=== PATIENT | female | born 1935 | race African-American/Black ===

== ENCOUNTER 2017-07-06 15:51 | Observation (INO) | payer OTHER ==
[~2017-07-06] VITALS: Ht 172.7 cm; Wt 80.7 kg
[2017-07-06 16:46] LABS: Basophils # (auto) 0 uL; Basophils % (auto) 0.1 % (0.0-2.0); CONDITION Y; DEFINITIVE SEE PRINTOUT; Eosinophils # (auto) 0 uL; Eosinophils % (auto) 0.1 % (0.0-7.0); Hematocrit 46.7 % (36.0-46.0); Hemoglobin 15.1 g/dL (12.2-16.2); Lymphocytes # (auto) 0.7 uL; Lymphocytes % (auto) 6.1 % (10.0-50.0); Mean Corpuscular Hemoglobin 26.3 pg (28.0-32.0); Mean Corpuscular Hgb Conc. 32.3 g/dL (32.0-36.0); Mean Corpuscular Volume 81.5 fL (80.0-100.0); Mean Platelet Volume 9.5 fL (7.4-10.4); Monocytes # (auto) 0.4 uL; Monocytes % (auto) 3.5 % (0.0-12.0); Neutrophils # (auto) 9.8 uL; Neutrophils % (auto) 90.2 % (37.0-80.0); Platelet Count (auto) 398 10^3/uL (140-450); Red Cell Distribution Width 17.8 % (11.6-16.0); SUSPECT SEE PRINTOUT; White Blood Cell 10.9 10^3/uL (4.4-10.8)
[2017-07-06 17:06] LABS: Albumin 3.2 g/dL (3.4-5.0); BUN/Creatinine Ratio 15.3; Calcium 9.5 mg/dL (8.5-10.1); Potassium 3.1 mmol/L (3.5-5.1)
[2017-07-06 17:09] LABS: Lactic Acid w/Reflex 3.4 mmol/L (0.4-2.0)
[2017-07-06 17:11] LABS: Bilirubin, Total 0.8 mg/dL (0.2-1.0); Total Protein 7.7 g/dL (6.4-8.2)
[2017-07-06 17:17] LABS: REFLEX LACTIC ACID YES OR NO YES
[2017-07-06 17:39] LABS: INR 1.1 (0.9-1.15); Partial Thromboplastin Time 25.2 sec (22.64-33.71)
[2017-07-06] MEDS ORDERED: cefTRIAXone 1GM/50ML D5W 50 ML IV ONE (19:15)
[2017-07-06] MEDS ORDERED: POTASSIUM CHL 20 Meq TABLET PO ONE (19:15)
[2017-07-06] MEDS ORDERED: SODIUM CHLORIDE 0.9% 1,000 ML IV ONE ×2 (19:30)
[2017-07-06] MEDS ORDERED: POTASSIUM CHL 10% (20 MEQ/15ML) 15ml ORAL SOLN GT ONE (19:45)
[2017-07-06 22:35] VITALS: BP 167/71
[2017-07-06 22:38] LABS: Urine Bilirubin Negative (Negative); Urine Blood 1+ /uL (Negative); Urine Color Yellow (Yellow); Urine Glucose Normal (Normal); Urine Hyaline Cast FEW /lpf (0 - 2); Urine Ketone Negative (Negative); Urine Mucus FEW (None Seen); Urine Nitrite Negative (Negative); Urine RBC 7 /hpf (0 - 4); Urine Squamous Epithelial Cell MOD /hpf (<5); Urine pH 6.5 (5.0-8.0)
== END 2017-07-06 23:34 | disposition short-term general hospital (02) | DRG 71 ==
LOC: ER 15:54 → OVERFLOW 17:10 → ER 23:34
PROVIDERS: ADMIT Family Medicine; ATTEND Family Medicine
DX: G93.41 Metabolic encephalopathy (principal); N30.00 Acute cystitis without hematuria; E87.0 Hyperosmolality and hypernatremia; E87.6 Hypokalemia; Z87.891 Personal history of nicotine dependence; R74.8 Abnormal levels of other serum enzymes; Z74.01 Bed confinement status; Z86.73 Personal history of transient ischemic attack (TIA), and cerebral infarction without residual deficits; I10 Essential (primary) hypertension; Z82.49 Family history of ischemic heart disease and other diseases of the circulatory system
CPT/HCPCS: 36415; 70450; 71010; 80053; 81001; 82962; 83605; 83735; 84484; 85025; 85610; 85730; 87040; 93005; 96365; 99291; G0378; J0696; J7030

== ENCOUNTER 2017-12-06 16:48 | Inpatient (IN) | payer OTHER, MEDICAID ==
[~2017-12-06] VITALS: Ht 154.9 cm; Wt 72.6 kg
[2017-12-06 17:42] LABS: Mean Corpuscular Hemoglobin 28.6 pg (28.0-32.0); White Blood Cell 19.3 10^3/uL (4.4-10.8)
[2017-12-06 17:44] LABS: Hematocrit 25.8 % (36.0-46.0); Mean Corpuscular Volume 92.4 fL (80.0-100.0); Platelet Count (auto) 370 10^3/uL (140-450)
[2017-12-06 17:48] LABS: Red Cell Distribution Width 22.2 % (11.8-14.3)
[2017-12-06 17:50] LABS: Basophils % (manual) 0 (0.0-2.0); Blast Cells 0; Eosinophils % (manual) 0 (0-7); Metamyelocytes % 0; Myelocytes % 0; Promyelocytes % 0; Reactive Lymphocytes 0
[2017-12-06 17:58] LABS: Albumin 1.5 g/dL (3.4-5.0); BUN/Creatinine Ratio 39.2; Calcium 8.8 mg/dL (8.5-10.1); Potassium 3.7 mmol/L (3.5-5.1)
[2017-12-06 17:59] LABS: INR 0.97 (0.9-1.15); Partial Thromboplastin Time 26.2 sec (22.64-33.71); Prothrombin Time 10.6 sec (9.37-12.3)
[2017-12-06 18:03] LABS: Bilirubin, Total 0.4 mg/dL (0.2-1.0); Total Protein 7.1 g/dL (6.4-8.2)
[2017-12-06 18:24] LABS: Band Neutrophils % (manual) 3; Lymphocytes % (manual) 3 (10.0-50.0); Monocytes % (manual) 3 (0-12)
[2017-12-06 19:12] LABS: Urine Bacteria FEW /hpf (None Seen); Urine Blood 1+ /uL (Negative); Urine Hyaline Cast FEW /lpf (0 - 2); Urine Specific Gravity 1.011 (1.001-1.035); Urine WBC 673 /hpf (0 - 5); Urine WBC Clumps PRESENT /hpf (None Seen)
[2017-12-06] MEDS ORDERED: cefTRIAXone 1GM/10ml IVPUSH 10 ML IV ONE (19:15)
[2017-12-06] MEDS ORDERED: ASPirin 81 mg TAB PO ONE (19:15)
[2017-12-06] MEDS ORDERED: LEVOFLOXACIN 500MG 0 ML IV ONE (19:50)
[2017-12-06 20:02] LABS: Alcohol, Urine < 3.0 mg/dL (0-5); Amphetamine Screen, Urine NEGATIVE (NEGATIVE); Barbiturate Scree,Urine NEGATIVE (NEGATIVE); Benzodiazephine Screen, Urine NEGATIVE (NEGATIVE); Cannabinoid Screen, Urine NEGATIVE (NEGATIVE); Cocaine Screen, Urine NEGATIVE (NEGATIVE); Opiate Scree,Urine NEGATIVE (NEGATIVE); Phencyclidine Screen, Urine NEGATIVE (NEGATIVE)
[2017-12-06] MEDS ORDERED: VANCOMYCIN PER PHARMACY 0 MG IV SCH ×2 (20:45→23:30)
[2017-12-06] MEDS ORDERED: PIPERACILLIN-TAZOB 3.375GM 50 ML IV ONE (20:45)
[2017-12-06] MEDS ORDERED: IOHEXOL 300 MG/ML 100ML BOTTLE IJ ONE (20:46)
[2017-12-06] MEDS ORDERED: VANCOMYCIN 1GM/250ML 250 ML IV ONE (21:30)
[2017-12-06] MEDS ORDERED: ONDANSETRON HCL 4 MG/2 ML VIAL IV PRN (23:30)
[2017-12-06] MEDS ORDERED: MORPHINE SULFATE 4 MG/ML SYR/VIAL IV PRN (23:30)
[2017-12-06] MEDS: SOD CHL 0.45% 1,000 ML IV SCH (23:30)
[2017-12-06] MEDS ORDERED: ACETAMINOPHEN 325 MG TAB PO PRN (23:30)
[2017-12-06] MEDS ORDERED: HYDROcodone-ACET 5/325MG TAB PO PRN (23:30)
[2017-12-06] MEDS ORDERED: NITROGLYCERIN 0.4 MG SL TAB SL PRN (23:30)
[2017-12-06] MEDS ORDERED: PANTOPRAZOLE 40 MG/10 ML VIAL IV ONE (23:30)
[2017-12-07] MEDS ORDERED: VANCOMYCIN 1GM/250ML 250 ML IV ONE (01:00)
[2017-12-07 06:03] LABS: Basophils # (auto) 0 uL; Basophils % (auto) 0.1 % (0.0-2.0); Eosinophils # (auto) 0 uL; Eosinophils % (auto) 0.1 % (0.0-7.0); Hemoglobin 7.4 g/dL (12.2-16.2); Lymphocytes # (auto) 1.4 uL; Lymphocytes % (auto) 7.2 % (10.0-50.0); Mean Corpuscular Hemoglobin 29.2 pg (28.0-32.0); Mean Corpuscular Hgb Conc. 32.2 g/dL (32.0-36.0); Mean Corpuscular Volume 90.8 fL (80.0-100.0); Monocytes # (auto) 0.5 uL; Monocytes % (auto) 2.8 % (0.0-12.0); Neutrophils % (auto) 89.8 % (37.0-80.0); Nucleated Red Blood Cells % 0.2 %; Platelet Count (auto) 293 10^3/uL (140-450); Red Blood Cells 2.54 10^6/uL (4.0-5.20); White Blood Cell 18.9 10^3/uL (4.4-10.8)
[2017-12-07 06:07] LABS: Potassium 3.9 mmol/L (3.5-5.1)
[2017-12-07 06:08] LABS: Albumin 1.4 g/dL (3.4-5.0); BUN/Creatinine Ratio 41.3; Calcium 8.7 mg/dL (8.5-10.1); Red Cell Distribution Width 21.5 % (11.8-14.3)
[2017-12-07 06:38] LABS: Bilirubin, Total 0.4 mg/dL (0.2-1.0); Total Protein 6.3 g/dL (6.4-8.2)
[2017-12-07 09:00] VITALS: BP 135/62
[2017-12-07] MEDS: ASPirin 81 mg TAB PO SCH (09:57)
[2017-12-07] MEDS ORDERED: PANT40TA2 PO (09:57)
[2017-12-07] MEDS ORDERED: LISI10TA6 PO (09:57)
[2017-12-07] MEDS: ENOXAPARIN SOD 40 MG/0.4 ML SYRINGE SC SCH (10:12)
[2017-12-07] MEDS: PANTOPRAZOLE 40 MG/10 ML VIAL IV SCH (10:12)
[2017-12-07 13:00] VITALS: BP 128/76
[2017-12-07 17:00] VITALS: BP 79/38
[2017-12-07] MEDS: SOD CHL 0.45% 1,000 ML IV SCH (21:04)
[2017-12-07] MEDS: cefTRIAXone 1GM/10ml IVPUSH 10 ML IV SCH (21:28)
[2017-12-07 21:58] VITALS: BP 102/58
[2017-12-08] MEDS: VANCOMYCIN 1GM/250ML 250 ML IV SCH (01:15)
[2017-12-08 04:59] VITALS: BP 101/49
[2017-12-08 09:00] VITALS: BP 147/87
[2017-12-08] MEDS: ASPirin 81 mg TAB PO SCH (10:00)
[2017-12-08] MEDS: PANTOPRAZOLE 40 MG/10 ML VIAL IV SCH (10:06)
[2017-12-08] MEDS: ENOXAPARIN SOD 40 MG/0.4 ML SYRINGE SC SCH (10:06)
[2017-12-08 12:08] LABS: Basophils # (auto) 0 uL; Eosinophils % (auto) 0.3 % (0.0-7.0); Mean Corpuscular Hemoglobin 29.9 pg (28.0-32.0); Monocytes # (auto) 0.3 uL; Nucleated Red Blood Cells % 0.1 %; White Blood Cell 15.6 10^3/uL (4.4-10.8)
[2017-12-08 12:10] LABS: Basophils % (auto) 0.2 % (0.0-2.0); Eosinophils # (auto) 0 uL; Hematocrit 20.6 % (36.0-46.0); Lymphocytes % (auto) 6.7 % (10.0-50.0); Mean Corpuscular Hgb Conc. 32.9 g/dL (32.0-36.0); Monocytes % (auto) 2.2 % (0.0-12.0); Neutrophils # (auto) 14.1 uL; Neutrophils % (auto) 90.6 % (37.0-80.0); Platelet Count (auto) 321 10^3/uL (140-450); Red Blood Cells 2.27 10^6/uL (4.0-5.20)
[2017-12-08 12:36] LABS: Hemoglobin 6.8 g/dL (12.2-16.2)
[2017-12-08 12:40] LABS: BUN/Creatinine Ratio 36.9; Calcium 8.4 mg/dL (8.5-10.1); Potassium 3.4 mmol/L (3.5-5.1)
[2017-12-08 13:00] VITALS: BP 159/87
[2017-12-08] MEDS: SOD CHL 0.45% 1,000 ML IV SCH (15:51)
[2017-12-08 16:45] VITALS: BP 156/79
[2017-12-08 22:00] VITALS: BP 134/67
[2017-12-08] MEDS: cefTRIAXone 1GM/10ml IVPUSH 10 ML IV SCH (22:00)
[2017-12-09] MEDS: VANCOMYCIN 1GM/250ML 250 ML IV SCH (01:24)
[2017-12-09 05:27] VITALS: BP 114/52
[2017-12-09] MEDS ORDERED: ceFAZolin 1GM/50ML 50 ML IV ONE (06:35)
[2017-12-09 06:46] LABS: Basophils # (auto) 0 uL; Eosinophils # (auto) 0 uL; Mean Corpuscular Hgb Conc. 32.3 g/dL (32.0-36.0); Monocytes # (auto) 0.3 uL
[2017-12-09 06:48] LABS: Basophils % (auto) 0.1 % (0.0-2.0); Eosinophils % (auto) 0.2 % (0.0-7.0); Hematocrit 19.5 % (36.0-46.0); Lymphocytes # (auto) 0.9 uL; Lymphocytes % (auto) 8.6 % (10.0-50.0); Mean Corpuscular Hemoglobin 30.1 pg (28.0-32.0); Mean Corpuscular Volume 93.1 fL (80.0-100.0); Neutrophils # (auto) 9.4 uL; Neutrophils % (auto) 88.1 % (37.0-80.0); Nucleated Red Blood Cells % 0.4 %; Platelet Count (auto) 318 10^3/uL (140-450); Red Blood Cells 2.09 10^6/uL (4.0-5.20); White Blood Cell 10.6 10^3/uL (4.4-10.8)
[2017-12-09 07:01] LABS: Albumin 1.2 g/dL (3.4-5.0); Calcium 8.3 mg/dL (8.5-10.1); Potassium 3.1 mmol/L (3.5-5.1)
[2017-12-09 07:04] LABS: BUN/Creatinine Ratio 39.5
[2017-12-09 07:07] LABS: Bilirubin, Total 0.4 mg/dL (0.2-1.0); Total Protein 5.9 g/dL (6.4-8.2)
[2017-12-09 07:33] LABS: Hemoglobin 6.3 g/dL (12.2-16.2)
[2017-12-09 09:41] VITALS: BP 123/60
[2017-12-09] MEDS: ASPirin 81 mg TAB PO SCH (09:49)
[2017-12-09] MEDS: ENOXAPARIN SOD 40 MG/0.4 ML SYRINGE SC SCH (10:12)
[2017-12-09] MEDS: PANTOPRAZOLE 40 MG/10 ML VIAL IV SCH (10:12)
[2017-12-09] MEDS ORDERED: POTASSIUM CHL 10% (20 MEQ/15ML) 15ml ORAL SOLN NG ONE (10:15)
[2017-12-09 11:20] VITALS: BP 123/60
== END 2017-12-09 12:53 | disposition home or self-care (01) | DRG 871 ==
LOC: EDBD 16:48 → ER 16:48 → TELE 16:49 → TELE-CENTR 12-07 08:23
PROVIDERS: ADMIT Nurse Practitioner; ATTEND Internal Medicine
DX: A41.9 Sepsis, unspecified organism (principal); L89.154 Pressure ulcer of sacral region, stage 4; J94.8 Other specified pleural conditions; L89.94 Pressure ulcer of unspecified site, stage 4; E87.0 Hyperosmolality and hypernatremia; I69.351 Hemiplegia and hemiparesis following cerebral infarction affecting right dominant side; J18.1 Lobar pneumonia, unspecified organism; R64 Cachexia; N39.0 Urinary tract infection, site not specified; Z51.5 Encounter for palliative care; Z66 Do not resuscitate; R74.8 Abnormal levels of other serum enzymes; Z53.29 Procedure and treatment not carried out because of patient's decision for other reasons; D64.9 Anemia, unspecified; E86.0 Dehydration; F03.90 Unspecified dementia, unspecified severity, without behavioral disturbance, psychotic disturbance, mood disturbance, and anxiety; I10 Essential (primary) hypertension; I69.320 Aphasia following cerebral infarction; Z68.30 Body mass index [BMI] 30.0-30.9, adult; Z74.01 Bed confinement status
CPT/HCPCS: 36415; 36600; 51702; 71045; 71260; 80048; 80053; 80307; 81001; 82805; 83605; 83735; 83880; 84484; 85007; 85025; 85027; 85610; 85730; 86850; 86900; 86901; 86920; 87040; 87077; 87081; 87086; 87088; 87186; 87205; 93005; 96361; 96365; 96366; 96375; 99291; C9113; J0690; J1956; J2543